=== PATIENT | male | born 1935 | race Caucasian/White ===

== ENCOUNTER 2018-12-31 07:45 | Day surgery (SDC) | payer MEDICARE, OTHER ==
[~2018-12-31 07:45] MED LIST: PROPOFOL 200 MG INJ
[2018-12-31] MEDS ORDERED: PROPOFOL 40 ML (09:51)
[2018-12-31] MEDS ORDERED: LIDOCAINE 100 MG SYRINGE (09:51)
== END 2018-12-31 14:58 | disposition home or self-care (01) ==
LOC: GIL 07:45
DX: K22.70 Barrett's esophagus without dysplasia (principal); K29.00 Acute gastritis without bleeding; E11.9 Type 2 diabetes mellitus without complications; I10 Essential (primary) hypertension
CPT/HCPCS: 43239; 82962; 88305; 88312; 88313